=== PATIENT | female | born 1955 | race African-American/Black ===

== ENCOUNTER 2016-09-30 14:49 | Emergency (ER) | payer SELFPAY ==
[~2016-09-30] VITALS: Ht 157.5 cm; Wt 72.6 kg
[2016-09-30] MEDS ORDERED: NKM (15:05)
[2016-09-30] MEDS ORDERED: Meclizine 25mg tab ORAL ONE (16:00)
[2016-09-30 16:30] LABS: BASOPHILS % (AUTO) 1.7 % (0.0-2.0); LYMPHOCYTES % (AUTO) 45.7 % (20.0-45.0); MEAN CORPUSCULAR HEMOGLOBIN 27.4 PG (27.0-31.0); MEAN CORPUSCULAR HGB CONC 31.5 G/DL (32.0-36.0); MEAN CORPUSCULAR VOLUME 87 FL (80-99); MONOCYTES % (AUTO) 5.7 % (1.0-10.0); NEUTROPHILS % (AUTO) 43.9 % (45.0-75.0); PLATELET COUNT 195 K/UL (150-450); RED BLOOD COUNT 4.38 M/UL (4.20-5.40); RED CELL DISTRIBUTION WIDTH 14.1 % (11.6-14.8); WHITE BLOOD COUNT 7.2 K/UL (4.8-10.8)
[2016-09-30 16:32] LABS: ALANINE AMINOTRANSFERASE 15 U/L (3-33); ALBUMIN/GLOBULIN RATIO 1.7 (1.0-2.7); ANION GAP 16 (5-15); ASPARTATE AMINO TRANSFERASE 19 U/L (5-40); CALCIUM 9.3 mg/dL (8.6-10.2); CARBON DIOXIDE 25 mEQ/L (20-30); CHLORIDE 99 mEQ/L (98-107); CREATININE 0.8 mg/dL (0.5-0.9); GLOMERULAR FILTRATION RATE > 60 mL/min (>60); HEMOLYSIS 5; POTASSIUM 3.9 mEQ/L (3.4-4.9); SODIUM 140 mEQ/L (135-145); TOTAL PROTEIN 6.9 g/dL (6.6-8.7); TROPONIN I < 0.30 ng/mL (<=0.30)
[2016-09-30 16:42] LABS: CKMB 1.6 ng/mL (< 3.8)
--- NOTE | 2016-09-30 17:31 | Emergency Room Report ---
History of Present Illness General Chief Complaint: Dizziness Source: Patient Present Illness HPI 61-year-old female presents to ED for evaluation. Patient states the last 2 weeks she's been complaining of headache, dizziness, neck pain. Patient states she feels that the room is spinning. Notes headache. 5/10. Throbbing. Nonradiating. Also notes pain to left sided neck. Denies neck stiffness. Denies fevers or chills. Denies chest pain or shortness of breath. No other aggravating relieving factors. Denies any other associated symptoms Allergies: Coded Allergies: No Known Allergies (Unverified , 09/30/16) Patient History Past Medical History: none Past Surgical History: none Pertinent Family History: none Social History: Denies: alcohol use, drug use, smoking Now: No Immunizations: UTD Reviewed Nursing Documentation: PMH: Agreed, PSxH: Agreed Nursing Documentation-PMH Past Medical History: No Stated History Review of Systems All Other Systems: negative except mentioned in HPI Physical Exam Vital Signs Date Time Temp Pulse Resp B/P Pulse Ox O2 Delivery O2 Flow Rate FiO2 09/30/16 15:01 98.1 56 18 130/74 98 Room Air Sp02 EP Interpretation: reviewed, normal General Appearance: no apparent distress, alert, GCS 15, non-toxic Head: normocephalic, atraumatic Eyes: bilateral eye PERRL, bilateral eye normal inspection ENT: hearing grossly normal, normal pharynx, no angioedema, normal voice Neck: full range of motion, no meningismus, supple/symm/no masses, tender lateral Respiratory: chest non-tender, lungs clear, normal breath sounds, speaking full sentences Cardiovascular #1: regular rate, rhythm, no edema Cardiovascular #2: 2+ carotid (R), 2+ carotid (L), 2+ radial (R), 2+ radial (L) , 2+ dorsalis pedis (R), 2+ dorsalis pedis (L) Gastrointestinal: normal bowel sounds, non tender, soft, non-distended, no guarding, no rebound Rectal: deferred Genitourinary: normal inspection, no CVA tenderness Musculoskeletal: back normal, gait/station normal, normal range of motion, non- tender Neurologic: alert, oriented x3, responsive, 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 c/o neck pain Differential diagnoses include: CA/unstable angina, SVT, A. fib, V. tach, CVA/ TIA, intracranial mass, vertigo, carotid artery dissection Clinical course Patient placed on stretcher. on emergency communications dispatcher. After initial history and physical I ordered labs, EKG, IVFs, meclizine, CTA Brain and neck labs reviewed- no leukocytosis, hemoglobin/hematocrit stable, electrolytes okay , troponins negative EKG - NSR, no acute changes CTA brain and neck - negative for arterial abnormality Upon reassessment patient states his symptoms have improved. Clinical findings consistent with vertigo. I. I feel this is a highly complex case requiring extensive working including EKG/Rhythm strip, Xray/CT/US, Blood/urine lab work, repeat exams while in ED, and administration of strong opiates/narcotics for pain control, admission to hospital or close patient follow up. Diagnosis - vertigo stable and discharged to home with prescription for meclizine. Followup with PMD. Return to ED if symptoms recur or worsen Labs Test 09/30/16 16:06 White Blood Count 7.2 K/UL (4.8-10.8) Red Blood Count 4.38 M/UL (4.20-5.40) Hemoglobin 12.0 G/DL (12.0-16.0) Hematocrit 38.1 % (37.0-47.0) Mean Corpuscular Volume 87 FL (80-99) Mean Corpuscular Hemoglobin 27.4 PG (27.0-31.0) Mean Corpuscular Hemoglobin Concent 31.5 G/DL (32.0-36.0) Red Cell Distribution Width 14.1 % (11.6-14.8) Platelet Count 195 K/UL (150-450) Mean Platelet Volume 9.0 FL (6.5-10.1) Neutrophils (%) (Auto) 43.9 % (45.0-75.0) Lymphocytes (%) (Auto) 45.7 % (20.0-45.0) Monocytes (%) (Auto) 5.7 % (1.0-10.0) Eosinophils (%) (Auto) 3.0 % (0.0-3.0) Basophils (%) (Auto) 1.7 % (0.0-2.0) Sodium Level 140 mEQ/L (135-145) Potassium Level 3.9 mEQ/L (3.4-4.9) Chloride Level 99 mEQ/L (98-107) Carbon Dioxide Level 25 mEQ/L (20-30) Anion Gap 16 (5-15) Blood Urea Nitrogen 13 mg/dL (7-23) Creatinine 0.8 mg/dL (0.5-0.9) Estimat Glomerular Filtration Rate > 60 mL/min (>60) Glucose Level 92 mg/dL (74-106) Calcium Level 9.3 mg/dL (8.6-10.2) Total Bilirubin < 0.2 mg/dL (0.0-1.2) Aspartate Amino Transf (AST/SGOT) 19 U/L (5-40) Alanine Aminotransferase (ALT/SGPT) 15 U/L (3-33) Alkaline Phosphatase 89 U/L (35-104) Total Creatine Kinase 260 U/L (26-140) Creatine Kinase MB 1.6 ng/mL (< 3.8) Creatine Kinase MB Relative Index 0.6 Troponin I < 0.30 ng/mL (<=0.30) Total Protein 6.9 g/dL (6.6-8.7) Albumin 4.4 g/dL (3.5-5.2) Globulin 2.5 g/dL Albumin/Globulin Ratio 1.7 (1.0-2.7) EKG Diagnostic Results Rate: bradycardiac Rhythm: NSR ST Segments: no acute changes ASA given to the pt in ED: No Rhythm Strip Diag. Results EP Interpretation: yes Rhythm: NSR, no PVC's, no ectopy CT/MRI/US Diagnostic Results CT/MRI/US Diagnostic Results : Imaging Test Ordered: CTA head, CTA Neck Impression CT Head - no acute process CTA head- no vascular abnormality CTA neck - no vascular abnormality Last Vital Signs Date Time Temp Pulse Resp B/P Pulse Ox O2 Delivery O2 Flow Rate FiO2 09/30/16 15:01 98.1 56 18 130/74 98 Room Air Status: improved Disposition: HOME, SELF-CARE Condition: Stable Scripts Meclizine Hcl* (MECLIZINE*) 25 Mg Tablet 25 MG ORAL THREE TIMES A DAY, #20 TAB Prov: OPAL CONROY M.D. 09/30/16 Referrals: NOT CHOSEN LORENA/,REFERRING (PCP) OPAL CONROY M.D. Sep 30, 2016 17:31
[2016-09-30 19:30] VITALS: BP 124/71
[2016-09-30] MEDS ORDERED: MECLIZINE HCL25 MG ORAL (19:31)
[2016-09-30 19:42] VITALS: BP 124/71
--- NOTE | 2016-10-01 09:38 | Diagnostic Imaging Report ---
Indication: Dizziness, headache, blurred vision and left-sided neck pain Technique: CT angiography of the intracranial circulation was performed utilizing bolus contrast injection and continuous helical scanning. Axial, coronal, and sagittal images were generated. Maximum intensity projections were obtained off line. Initial precontrast images were obtained followed by postcontrast images. Dose: Total Dose Length Product - DLP [address] Dose Index - CTDIvol(s) 70.38, 16.50, 165.04, 54.98, 54.98 mGy. This includes dose for CTA of the neck. Comparison: None Findings: The distal internal carotid arteries are normal. The carotid siphons are unremarkable. The A1 segments of the anterior cerebral arteries are normal. The anterior communicating artery is normal. The middle cerebral arteries are normal. The posterior communicating arteries are relatively large. The left is larger than the right. The vessels in the sylvian fissures are normal. The basilar artery is thin. There is no right P1 segment. There is a small left P1 segment. Most of the left posterior true artery is fed via the posterior indicating artery. The branches of the basilar artery are otherwise unremarkable. Impression: Probable absent right P1 segment of the posterior cerebral artery on the right. Otherwise negative. No evidence of arteriovenous malformation, aneurysm, or dissection. The above report is concordant with preliminary reading by [employer] . The CT scanner at [facility] is accredited by the [employer] and the scans are performed using protocols designed to limit radiation exposure to as low as reasonably achievable to attain images of sufficient resolution adequate for diagnostic evaluation.
--- NOTE | 2016-10-01 09:40 | Diagnostic Imaging Report ---
Indication: Headache, left sided neck pain Technique: CT angiography of the neck performed utilizing bolus contrast injection and continuous helical scanning. Axial, coronal, and sagittal images were generated. Maximum intensity projections were obtained off line. Dose: Total Dose Length Product - DLP [address] Dose Index - CTDIvol(s) 7.38, 16.50, 165.04, 54.98, 54.98 mGy. This includes the dose for CTA of the head. Comparison: None Findings: The demonstrated portion of the aortic arch is normal. There is bovine anatomy with the origin of the left common carotid artery from the right brachiocephalic artery. Right brachycephalic artery is otherwise unremarkable. The right common carotid artery, internal carotid artery, and external carotid artery are unremarkable. The right vertebral artery is unremarkable other than a relatively small caliber. The left common carotid artery, internal carotid very, and external carotid artery are otherwise unremarkable. Left vertebral artery is normal with the exception of relatively small caliber. There are low density nodules in the thyroid gland. Impression: Negative study. No significant abnormality. No evidence of dissection. The above report is concordant with preliminary reading by [employer] . The CT scanner at [facility] is accredited by the [employer] and the scans are performed using protocols designed to limit radiation exposure to as low as reasonably achievable to attain images of sufficient resolution adequate for diagnostic evaluation.
--- NOTE | 2016-10-02 13:56 | Cardiology Report ---
APPROVED REPORT EKG Measurement Heart [id number] N[address] and T wave abnormality Abnormal ECG
== END 2016-09-30 19:42 | disposition home or self-care (01) ==
LOC: EMR 15:10
DX: R42 Dizziness and giddiness (principal); R51 Headache; M54.2 Cervicalgia
CPT/HCPCS: 36415; 70496; 70498; 80053; 82550; 82553; 84484; 85025; 93005; 96374; 99284; J7040; Q9967